=== PATIENT | male | born 1990 | race African-American/Black ===

== ENCOUNTER 2017-05-23 07:57 | Emergency (ER) | payer SELFPAY ==
[~2017-05-23] VITALS: Ht 188 cm; Wt 125.0 kg
[~2017-05-23 07:57] MED LIST: IBUP-232 PO; IBUP800T23 PO; OSEL75 PO; ZOFR4TAB3 SL
[2017-05-23 08:01] VITALS: BP 179/95; PULSE 68; RESP 18; TEMP 99; O2SAT 98
[2017-05-23] MEDS ORDERED: DEXAMETHASONE SOD PHOS 20 MG/5 ML VIAL IM ONE (08:15)
[2017-05-23] MEDS ORDERED: KETOROLAC TROMETHAMINE 60 MG/2 ML (IM) VIAL IM ONE (08:15)
[2017-05-23] MEDS ORDERED: INDO50CA PO (09:03)
--- NOTE | 2017-05-23 09:04 | PD ---
HPI Chief Complaint: Musculoskeletal Complaint Time Seen by Provider: 08:08 Travel History International Travel<30 days: No Contact w/Intl Traveler<30days: No Traveled to known affect area: No History of Present Illness HPI Patient is a 26 year male presenting to emergency for evaluation of right foot pain. Patient states the pain started when he woke up this morning, there was no preceding injury or trauma. He denies any alcohol use last night which would 've acute his memory of any injury or trauma. He states that he was at home watching TV. He states the pain is a 7 out of 10 and states it is aching and sore. He reports mild swelling to the dorsal aspect of his right foot. He denies any redness. The pain is aching and throbbing, and is unrelieved by anything. Patient took Tylenol orally a few hours prior to arrival. He denies any significant history. Onset of pain was sudden, patient states the same thing happened a year or so ago. When it occurred at that time he went to [facility] and they checked him for gout which he did not have. PFSH Past Medical History Hx Anticoagulant Therapy: No Cardiovascular Problems: No Chemotherapy: No Cerebrovascular Accident: No Diabetes: No Musculoskeletal: Yes (BACK PAIN OCCAS FR [facility] 2009) Respiratory: No Immunizations Current: Yes Social History Alcohol Use: No Tobacco Use: No Substance Use: Yes (MARIJUANA 07/10) Allergies-Medications (Allergen,Severity, Reaction): Coded Allergies: No Known Allergies (Verified , 07/11/15) Reported Meds & Prescriptions Reported Meds & Active Scripts Active Indomethacin 50 Mg Cap 50 Mg PO TID 10 Days Take with food, milk, or antacids to decrease stomach adverse effects. Ibuprofen 800 Mg Tab 800 Mg PO TID Motrin (Ibuprofen) 600 Mg Tab 600 Mg PO QID GIVE WITH FOOD Tamiflu 75 mg (Oseltamivir Phosphate) 75 Mg Cap 75 Mg PO BID 5 Days Zofran ODT (Ondansetron HCl) 4 Mg Tab 4 Mg SL Q6HR PRN FOR NAUSEA/VOMITING Review of Systems Except as stated in HPI: all other systems reviewed are Neg Musculoskeletal: Positive: Myalgias, Edema, Pain Physical Exam Narrative GENERAL: Well-developed, well-nourished, alert male. Resting comfortably in no acute distress. SKIN: Warm and dry. No rash or obvious lesions. No erythema or significant edema noted to right foot and ankle. HEAD: Normocephalic. EYES: No scleral icterus. No injection or drainage. NECK: Supple, trachea midline. No JVD or lymphadenopathy. CARDIOVASCULAR: Regular rate and rhythm without murmurs, gallops, or rubs. RESPIRATORY: Breath sounds equal bilaterally. No accessory muscle use. GASTROINTESTINAL: Abdomen soft, non-tender, nondistended. MUSCULOSKELETAL: No cyanosis, or edema. Non-tender to palpation on right ankle. Decreased range of motion with flexion and extension of right foot. 2+ dorsalis pedal pulses. Brisk less than 3 second capillary refill. BACK: Nontender without obvious deformity. No CVA tenderness. Data Data Last Documented VS Vital Signs Date Time Temp Pulse Resp B/P (MAP) Pulse Ox O2 Delivery O2 Flow Rate FiO2 05/23/17 08:01 99.0 68 18 179/95 (123) 98 Orders Orders Ketorolac Inj (Toradol Inj) (05/23/17 08:15) Dexamethasone Inj (Decadron Inj) (05/23/17 08:15) Crutches (05/23/17 09:00) Gordon Bandage (05/23/17 09:00) Ed Discharge Order (05/23/17 09:00) MDM Medical Decision Making Medical Screen Exam Complete: Yes Emergency Medical Condition: Yes Interpretation(s) Vital Signs Date Time Temp Pulse Resp B/P (MAP) Pulse Ox O2 Delivery O2 Flow Rate FiO2 05/23/17 08:01 99.0 68 18 179/95 (123) 98 Differential Diagnosis Sprain versus strain versus gout versus arthritis versus other Narrative Course Patient is a 26-year-old male that presented to emergency department for evaluation of right foot pain. There is no preceding injury or trauma. Exam is unremarkable, vital signs are stable. Patient was given Toradol and dexamethasone the emergency department, he reported mild improvement in pain. Patient will be placed in Gordon wrap and given crutches for support, he is encouraged to increase activity as tolerated. He was encouraged to follow-up with his primary doctor continue range of motion exercises, ice, elevate extremity. This occurs return to emergency department for any new or worsening symptoms. Patient verbalized understanding. Patient stable for discharge. Diagnosis Primary Impression: Right foot strain Qualified Codes: S96.911A - Strain of unspecified muscle and tendon at ankle and foot level, right foot, initial encounter Referrals: Primary Care Physician 2 days Patient Instructions: Foot Sprain (ED), General Instructions Additional Instructions: Follow up with your primary doctor Elevate extremity, ice, continue range of motion exercises. Take medication as directed. Return to the Emergency department for any new or worsening symptoms. Increase weight bearing as tolerated. Med/Other Pt SpecificInfo: Prescription(s) given Scripts Indomethacin (Indomethacin) 50 Mg Cap 50 MG PO TID for 10 Days, CAP 0 Refills Take with food, milk, or antacids to decrease stomach adverse effects. Prov: Es Berg 05/23/17 Disposition: 01 DISCHARGE HOME Condition: Stable Es Berg May 23, 2017 09:04
== END 2017-05-23 09:33 | disposition home or self-care (01) ==
LOC: NEPD 07:57
DX: S96.911A Strain of unspecified muscle and tendon at ankle and foot level, right foot, initial encounter (principal); Z79.899 Other long term (current) drug therapy; X58.XXXA Exposure to other specified factors, initial encounter
CPT/HCPCS: 96372; 99283; E0113; J1100; J1885